=== PATIENT | female | born 1950 | race Caucasian/White ===

== ENCOUNTER 2020-04-10 11:06 | Inpatient (IN) ==
[2020-04-10 11:58] LABS: Basophils % 0.3 %; Eosinophils % 0.1 %; Hematocrit 38.6 % (35.3-44.9); Hemoglobin 12.7 g/dL (11.5-15.4); Lymphocytes # 0.8 K/mcL (0.6-4.6); Mean Corpuscular HGB Conc 32.9 g/dL (31.6-35.5); Mean Corpuscular Hemoglobin 28.8 pg (28.0-33.3); Mean Corpuscular Volume 87.5 fL (83.0-100.0); Mean Platelet Volume 8.9 fL (9.4-12.4); Monocytes # 0.6 K/mcL (0.0-1.3); Monocytes % 8.7 %; Neutrophils # 5.2 K/mcL (1.6-8.9); Platelet Count 271 K/mcL (140-400); Red Blood Count 4.41 M/mcL (3.82-4.97); Red Cell Distribution Width 14.8 % (11.5-14.5); Segmented Neutrophils % 77.9 %; White Blood Count 6.7 K/mcL (4.3-11.1)
[2020-04-10] MEDS ORDERED: Isovue-370 500 ML BOTTLE IVP ONE (12:17)
[2020-04-10 12:19] LABS: BUN/Creatinine Ratio 15 (6-26); Blood Urea Nitrogen 8 mg/dL (8-23); Calcium 8.1 mg/dL (8.6-10.3); Carbon Dioxide 24 mEq/L (23-29); Chloride 103 mEq/L (98-107); Glucose 191 mg/dL (70-105); Osmolality,Calculated 287 (280-300); Potassium 3.4 mEq/L (3.5-5.1); Sodium 137 mEq/L (136-145); Troponin I < 0.03 ng/mL (< 0.04); eGFR For African Americans > 60 (> 60); eGFR For Non-African Americans > 60 (> 60)
[2020-04-10 12:36] LABS: Alanine Aminotransferase 24 Units/L (7-52); Albumin 3.4 g/dL (3.5-5.7); Albumin/Globulin Ratio 1.2 (1.1-2.2); Alkaline Phosphatase 41 Units/L (34-104); Aspartate Amino Transferase 42 Units/L (13-39); Bilirubin,Direct 0.2 mg/dL (0.0-0.2); Bilirubin,Indirect 0.4 mg/dL (0.0-1.0); Bilirubin,Total 0.6 mg/dL (0.3-1.0); C-Reactive Protein 38 mg/L (Less than 10); Globulin 2.8 g/dL (2.4-3.5); Lactate Dehydrogenase 295 Units/L (140-271); Total Protein 6.2 g/dL (6.4-8.9)
[2020-04-10 12:56] LABS: INR 1.2; Prothrombin Time 13.7 Seconds (9.4-12.1)
[2020-04-10 13:01] LABS: Ferritin 69 ng/mL (10-120)
[2020-04-10] MEDS ORDERED: Acetaminophen 325 MG TABLET PO PRN (15:45)
[2020-04-10] MEDS ORDERED: Ondansetron 4 MG/2 ML VIAL IVP PRN (15:45)
[2020-04-10] MEDS ORDERED: Ipratropium/Albuterol Neb 3 ML IH PRN (15:47)
[2020-04-10] MEDS: Furosemide 40 MG/4 ML VIAL IVP SCH (18:33)
[2020-04-10] MEDS: Dexamethasone 4 MG/ML VIAL IVP SCH (18:34)
[2020-04-10] MEDS ORDERED: 0.9 % Sodium Chloride 500 ML ONE (21:34)
[2020-04-11] MEDS: *HR* Enoxaparin 40 MG/0.4 ML SYRINGE SQ SCH (04:55)
[2020-04-11] MEDS: Furosemide 40 MG/4 ML VIAL IVP SCH (09:49)
[2020-04-11] MEDS: Dexamethasone 4 MG/ML VIAL IVP SCH (09:50)
[2020-04-11 11:16] LABS: Hematocrit 41.3 % (35.3-44.9); Hemoglobin 13.3 g/dL (11.5-15.4); Mean Corpuscular HGB Conc 32.2 g/dL (31.6-35.5); Mean Corpuscular Hemoglobin 28.5 pg (28.0-33.3); Mean Corpuscular Volume 88.4 fL (83.0-100.0); Mean Platelet Volume 8.7 fL (9.4-12.4); Platelet Count 289 K/mcL (140-400); Red Blood Count 4.67 M/mcL (3.82-4.97); Red Cell Distribution Width 14.6 % (11.5-14.5); White Blood Count 4.5 K/mcL (4.3-11.1)
[2020-04-11 11:26] LABS: BUN/Creatinine Ratio 20 (6-26); Blood Urea Nitrogen 12 mg/dL (8-23); Calcium 8.7 mg/dL (8.6-10.3); Carbon Dioxide 27 mEq/L (23-29); Chloride 103 mEq/L (98-107); Glucose 237 mg/dL (70-105); Osmolality,Calculated 295 (280-300); Potassium 3.8 mEq/L (3.5-5.1); Sodium 139 mEq/L (136-145); eGFR For African Americans > 60 (> 60); eGFR For Non-African Americans > 60 (> 60)
[2020-04-11] MEDS: levoFLOXacin 750 MG TABLET PO SCH (12:28)
[2020-04-11] MEDS ORDERED: *HR* Dextrose 50 % in Water (Vial) 50 ML VIAL IVP PRN (16:46)
[2020-04-11] MEDS ORDERED: Dextrose Gel 15 GM/37.5 ML TUBE PO PRN ×2 (16:46)
[2020-04-11] MEDS ORDERED: D5% in Water 1,000 ML IVC PRN (16:46)
[2020-04-11] MEDS ORDERED: Insulin DETEMIR 100 UNIT/ML X5UNITS SQ SCH (21:00)
[2020-04-11] MEDS: Dexamethasone Sodium Phos/PF 10 MG/ML VIAL IVP SCH (21:04)
[2020-04-12] MEDS: *HR* Enoxaparin 40 MG/0.4 ML SYRINGE SQ SCH (05:07)
[2020-04-12 07:51] LABS: D-Dimer 1104 ng/mLFEU (0-500); Fibrinogen 468 mg/dL (169-393)
[2020-04-12 08:00] LABS: BUN/Creatinine Ratio 32 (6-26); Blood Urea Nitrogen 19 mg/dL (8-23); Carbon Dioxide 27 mEq/L (23-29); Chloride 103 mEq/L (98-107); Glucose 293 mg/dL (70-105); Sodium 138 mEq/L (136-145); eGFR For African Americans > 60 (> 60); eGFR For Non-African Americans > 60 (> 60)
[2020-04-12 08:01] LABS: Calcium 8.8 mg/dL (8.6-10.3); Lactate Dehydrogenase 275 Units/L (140-271); Magnesium 2.1 mg/dL (1.6-2.6); Osmolality,Calculated 299 (280-300); Phosphorous 3.2 mg/dL (2.7-4.5)
[2020-04-12 08:18] LABS: Ferritin 72 ng/mL (10-120)
[2020-04-12] MEDS ORDERED: Insulin DETEMIR 100 UNIT/ML X5UNITS SQ SCH ×2 (09:00→21:00)
[2020-04-12] MEDS: Furosemide 40 MG/4 ML VIAL IVP SCH (10:11)
[2020-04-12] MEDS: Insulin LISPRO 300 UNITS/3 ML VIAL SQ SCH ×6 (10:12→17:01)
[2020-04-12] MEDS: Aspirin Enteric Coated 81 MG Tablet PO SCH (10:13)
[2020-04-12] MEDS: Dexamethasone Sodium Phos/PF 10 MG/ML VIAL IVP SCH ×2 (10:13→20:25)
[2020-04-12] MEDS: levoFLOXacin 750 MG TABLET PO SCH (10:13)
[2020-04-12 13:13] LABS: ABG Base Excess 4 mEq/L (-2 to 3); ABG HCO3 26 mEq/L (21-27); ABG Oxygen Saturation 94 % (95-98); ABG PCO2 30 mmHg (35-45); ABG PH 7.55 pH Units (7.32-7.45); ABG PO2 61 mmHg (85-104); ABG TCO2 27 mEq/L (20-26)
[2020-04-12] MEDS: Furosemide 20 MG/2 ML VIAL IVP SCH (16:54)
[2020-04-13] MEDS: *HR* Enoxaparin 40 MG/0.4 ML SYRINGE SQ SCH (05:21)
[2020-04-13 07:12] LABS: Basophils # 0.1 K/mcL (0.0-0.2); Basophils % 0.6 %; Hematocrit 45.3 % (35.3-44.9); Hemoglobin 14.2 g/dL (11.5-15.4); Immature Granulocytes % 1.7 % (0-4); Lymphocytes # 1.2 K/mcL (0.6-4.6); Lymphocytes % 13.8 %; Mean Corpuscular HGB Conc 31.3 g/dL (31.6-35.5); Mean Corpuscular Hemoglobin 27.3 pg (28.0-33.3); Mean Corpuscular Volume 87.1 fL (83.0-100.0); Mean Platelet Volume 9.1 fL (9.4-12.4); Monocytes # 0.7 K/mcL (0.0-1.3); Monocytes % 7.6 %; Neutrophils # 6.8 K/mcL (1.6-8.9); Platelet Count 400 K/mcL (140-400); Red Cell Distribution Width 14.5 % (11.5-14.5); Segmented Neutrophils % 76.3 %
[2020-04-13 07:13] LABS: White Blood Count 8.9 K/mcL (4.3-11.1)
[2020-04-13 07:24] LABS: Fibrinogen 405 mg/dL (169-393)
[2020-04-13 07:26] LABS: D-Dimer 946 ng/mLFEU (0-500)
[2020-04-13 07:31] LABS: BUN/Creatinine Ratio 36 (6-26); Blood Urea Nitrogen 27 mg/dL (8-23); Carbon Dioxide 27 mEq/L (23-29); Chloride 101 mEq/L (98-107); Glucose 306 mg/dL (70-105); Lactate Dehydrogenase 268 Units/L (140-271); Magnesium 2.2 mg/dL (1.6-2.6); Osmolality,Calculated 305 (280-300); Phosphorous 4.1 mg/dL (2.7-4.5); Potassium 3.9 mEq/L (3.5-5.1); Sodium 139 mEq/L (136-145); eGFR For African Americans > 60 (> 60); eGFR For Non-African Americans > 60 (> 60)
[2020-04-13 07:49] LABS: Ferritin 69 ng/mL (10-120)
[2020-04-13 08:35] VITALS: BP 142/62
[2020-04-13] MEDS ORDERED: Insulin DETEMIR 100 UNIT/ML X5UNITS SQ SCH (09:00)
[2020-04-13] MEDS: Insulin LISPRO 300 UNITS/3 ML VIAL SQ SCH ×6 (09:08→17:58)
[2020-04-13] MEDS: Aspirin Enteric Coated 81 MG Tablet PO SCH (09:11)
[2020-04-13] MEDS: Dexamethasone Sodium Phos/PF 10 MG/ML VIAL IVP SCH (09:11)
[2020-04-13] MEDS: Furosemide 20 MG/2 ML VIAL IVP SCH ×2 (09:11→17:58)
[2020-04-13] MEDS: levoFLOXacin 750 MG TABLET PO SCH (09:11)
== END 2020-04-13 19:29 | disposition home or self-care (01) | DRG 177 ==
LOC: 2NENU 11:06 → EMEROOARM 11:06 → SUATTDRO 15:45 → 2NENU 17:32
PROVIDERS: ADMIT Internal Medicine; ATTEND Internal Medicine